=== PATIENT | male | born 1955 | race Caucasian/White ===

== ENCOUNTER 2017-01-14 07:08 | Emergency (ER) | payer BC ==
[~2017-01-14] VITALS: Ht 182.9 cm; Wt 124.7 kg
--- NOTE | 2017-01-14 07:08 | NUR ---
BBRA FROM HOME FOR CHEST PAIN X20 MINS [employer]. 2 SPRAY NITRO 1 ASA GIVEN IN FIELD. NAD NOTED. PT 11/07 PAIN NOW, PLACED IN GOWN AND MONITOR. AWAITING MD FOR EVAL.
[2017-01-14] MEDS ORDERED: NITROGLYCERIN PACKET 1 GM PACKET ONE (07:18)
[2017-01-14] MEDS ORDERED: ASPIRIN 81 MG TAB.CHEW ONE (07:18)
[2017-01-14] MEDS ORDERED: ASPIRIN 81 MG TAB.CHEW PO ONE (07:30)
[2017-01-14] MEDS ORDERED: NITROGLYCERIN PACKET 1 GM PACKET TD ONE (07:30)
[2017-01-14 07:48] LABS: BASOPHILS % (AUTO) 0.3 % (0.0-2.0); EOSINOPHILS # (AUTO) 0.2 /CMM (0.0-0.7); EOSINOPHILS % (AUTO) 1.2 % (0.0-6.0); HEMATOCRIT 45 % (39-51); HEMOGLOBIN 14.6 g/dL (13.5-17.5); LYMPHOCYTES # (AUTO) 3.1 /CMM (0.8-4.8); LYMPHOCYTES % (AUTO) 21.8 % (20.0-44.0); MEAN CORPUSCULAR HEMOGLOBIN 27 PG (26.0-33.0); MEAN CORPUSCULAR HGB CONC 33 g/dl (31.0-36.0); MEAN CORPUSCULAR VOLUME 82 fL (80-96); MONOCYTES # (AUTO) 0.8 /CMM (0.1-1.30); MONOCYTES % (AUTO) 5.9 % (2.0-12.0); NEUTROPHILS # (AUTO) 10.2 /CMM (1.8-8.9); NEUTROPHILS % (AUTO) 70.8 % (43.0-81.0); PLATELET COUNT (AUTO) 338 /CMM (150-450); RDW COEFFICIENT OF VARIATION 14.1 (11.5-15.0); RED BLOOD CELL COUNT(AUTO) 5.43 MIL/uL (4.5-6.0); WHITE BLOOD COUNT (AUTO) 14.4 K/uL (4.3-11.0)
[2017-01-14 07:57] LABS: CALCIUM, SERUM 8.1 mg/dL (8.5-10.1); CREATININE 1.5 mg/dL (0.6-1.3); POTASSIUM 3.8 mmol/L (3.5-5.1)
[2017-01-14 08:06] LABS: TROPONIN I 2.392 ng/mL (0.00-0.056)
--- NOTE | 2017-01-14 08:09 | NUR ---
CAARDIOLOGY ON-CALL, DR ELKIN WHITE
--- NOTE | 2017-01-14 08:14 | NUR ---
CALL BACK FROM DR GRANGER
[2017-01-14 08:21] LABS: PROTHROMBIN TIME 10.7 SECS (9.5-12.7)
[2017-01-14] MEDS ORDERED: NTG 50 MG/D5W250 ML BOTTL 250 ML IV ONE ×2 (08:56→09:00)
[2017-01-14] MEDS ORDERED: IV SET PRIMARY PUMP SET 1 EA INFUS.SET MC ONE ×2 (08:56→09:08)
--- NOTE | 2017-01-14 08:58 | NUR ---
[facility] called and spoke with pranay lafleur
[2017-01-14] MEDS ORDERED: HEPARIN INFUSION/D5W 500 ML IV ONE ×2 (09:00→09:08)
[2017-01-14] MEDS ORDERED: HEPARIN SODIUM, PORCINE 5000 UNITS/1 ML VIAL IV ONE (09:00)
[2017-01-14] MEDS ORDERED: HEPARIN SODIUM, PORCINE 5000 UNITS/1 ML VIAL ONE (09:05)
[2017-01-14] MEDS ORDERED: METOPROLOL TARTRATE INJ 5 MG/5 ML AMPUL ONE (09:15)
--- NOTE | 2017-01-14 09:17 | NUR ---
NITRO DRIP D/C'D ORDERED
[2017-01-14] MEDS ORDERED: METOPROLOL TARTRATE INJ 5 MG/5 ML AMPUL IV ONE (09:30)
--- NOTE | 2017-01-14 09:40 | NUR ---
CALL RECEIVED FROM ROMULO JAY, ETA 20 MINUTE Addendum: 01/14/17 at 0940 by FLAVIA CALL RECEIVED FROM ROMULO JAY, ETA 20 MINUTES
[2017-01-14 09:59] VITALS: BP 114/61
--- NOTE | 2017-01-14 10:05 | NUR ---
TRANSPORT FOR PATIENT ARRIVED. REPORT GIVEN TO SCOTT CCT RN. PATIENT VERBALIZED UNDERSTANDING OF DISCHARGE INSTRUCTIONS. PT TO BE TRANSPORTED TO [facility] OF [facility]. BELONGINGS WITH PT. ALL FORMS GIVEN TO EMT AND CCT RN. NO FURTHER COMPLAINTS.
--- NOTE | 2017-01-14 10:10 | NUR ---
REPORT GIVEN TO ИВАН MOORE RN FROM [address]
== END 2017-01-14 10:38 | disposition short-term general hospital (02) ==
LOC: ER 07:13
DX: I21.4 Non-ST elevation (NSTEMI) myocardial infarction (principal); I10 Essential (primary) hypertension
CPT/HCPCS: 36415; 71010; 80048; 84484; 85025; 85730; 93005 ×2; 96365; 96375; 99291; 99292; A4606; J1644 ×2; J3490 ×2; Z7610